=== PATIENT | female | born 1990 | race African-American/Black ===

== ENCOUNTER 2018-05-22 02:18 | Inpatient (IN) ==
[2018-05-22 02:36] LABS: URINE SOURCE VOIDED
[2018-05-22 02:39] LABS: BILIRUBIN URINE NEGATIVE (NEGATIVE); BLOOD URINE TRACE (NEGATIVE); CLARITY CLEAR (CLEAR); COLOR YELLOW; GLUCOSE URINE NEGATIVE (NEGATIVE); KETONE URINE TRACE mg/dL (NEGATIVE); LEUKOCYTES URINE 1+ (NEGATIVE); NITRITE URINE NEGATIVE (NEGATIVE); PH URINE 6.5; PROTEIN URINE 1+(30 mg/dL) mg/dL (NEGATIVE); UROBILINOGEN URINE 4 mg/dL
--- NOTE | 2018-05-22 04:37 | HISTORY AND PHYSICAL ---
CHIEF COMPLAINT: Contractions since midnight. HISTORY OF PRESENT ILLNESS: A 27-year-old, 5, para 3, who presents complaining of contractions intermittently since midnight. Her antepartum course has been uncomplicated. She has had 2 prior vaginal deliveries and 1 prior section. She would like to have a ; however, states that Dr. Harding tells her that he is planning on doing a section. She had a previous section under emergent conditions in [place]. She says that she was told that she was cut low. She would like to have a tubal ligation . PAST OB HISTORY: Spontaneous vaginal delivery x2, section x1, SAB x2. PAST MEDICAL HISTORY: She has a history of Chlamydia treated this . She has a history of ASCUS Pap with a positive HPV. It is not clear from the record whether or not she has had colposcopy. PAST SURGICAL HISTORY: Negative. CURRENT MEDICATIONS: vitamins. ALLERGIES: None. PHYSICAL EXAMINATION: VITAL SIGNS: Blood pressure 134/84. Urine protein is 1+. Urine white cells are 1+. GENERAL APPEARANCE: Well nourished, well developed, alert and oriented x3, comfortable, no distress. ABDOMEN: heart rate category 1. Contractions seen, mild and irregular. Soft, nontender. PELVIS: Cervix is far posterior, 1 cm/long/-2, cephalic. EXTREMITIES: No cyanosis, clubbing, or edema. ASSESSMENT: 1. At 37-38 weeks gestation with previous section-desiring vaginal after section. 2. Desire for permanent sterilization. 3. Does not appear to be in active labor at this point. PLAN: We will observe her in labor and delivery for a couple of more hours to determine whether or not she is possibly in labor. We briefly discussed that a would be safe with a history of a low transverse incision, not with a previous vertical incision, and that we would need to review her operative note before allowing . We will see if we can obtain that note from [place]. If she is not in labor, she will be allowed to be discharged home and follow up with Dr. Harding as scheduled. cc: Juan Carlos Rosado MD
[2018-05-22] MEDS ORDERED: LR 1,000 ML IV SCH ×2 (04:45→05:00)
[2018-05-22] MEDS ORDERED: LR 500 ML IV ONE (04:55)
[2018-05-22] MEDS ORDERED: BICITRA PO ONE (05:14)
[2018-05-22] MEDS ORDERED: PEPCID IV ONE (05:14)
[2018-05-22] MEDS ORDERED: SODIUM CHLORIDE 0.9% INJ ONE (05:14)
[2018-05-22] MEDS ORDERED: REGLAN IV ONE (05:29)
[2018-05-22 05:31] LABS: BASO# 0.01 X1000 (0.0-0.2); BASO% 0.1 % (0.0-0.8); EOS# 0.07 X1000 (0.0-0.7); EOS% 0.9 % (0.0-10.0); HEMATOCRIT 37.5 % (37.0-47.0); HEMOGLOBIN 12.7 g/dL (12.0-16.0); IMM GRAN# 0.01 X1000 (0.0-0.04); IMM GRAN% 0.1 % (0.0-0.5); LYMPH# 2.08 X1000 (1.2-3.4); LYMPH% 26.6 % (20.5-51.1); MCH 30.8 PG (27-31); MCHC 33.9 g/dL (33-37); MCV 90.8 FL (81-99); MONO# 0.95 X1000 (0.11-0.59); MONO% 12.2 % (1.7-9.3); MPV 12.9 FL (7.4-10.4); NEUT# 4.69 X1000 (1.4-6.5); NEUT% 60.1 % (42.2-75.2); PLT 198 X1000 (130-400); RBC 4.13 XMIL (4.2-5.4); RDW 13.4 % (11.5-14.5); WBC 7.81 X1000 (4.8-10.8)
[2018-05-22] MEDS: KEFZOL 1 GM/D5W 1 GM/50 ML IVPB IV PRN ×2 (05:31→05:38)
[2018-05-22] MEDS ORDERED: DURAMORPH ONE (05:41)
[2018-05-22] MEDS ORDERED: NEO-SYNEPHRINE ONE (05:41)
[2018-05-22] MEDS ORDERED: PITOCIN ONE (05:41)
[2018-05-22] MEDS ORDERED: VERSED ONE (05:41)
[2018-05-22] MEDS ORDERED: TORADOL ONE (05:41)
[2018-05-22] MEDS ORDERED: SODIUM CHLORIDE 0.9% 10 ML ONE (05:41)
[2018-05-22] MEDS ORDERED: ZOFRAN ONE (05:43)
[2018-05-22 05:44] LABS: CREATININE 0.4 mg/dL (0.5-0.9)
[2018-05-22 06:05] LABS: UR AMPHETAMINES QUAL NONE DETECTED (NONE DETECT); UR BARBITUATES QUAL NONE DETECTED (NONE DETECT); UR BENZODIAZEPIN QUAL NONE DETECTED (NONE DETECT); UR CANNABINOIDS QUAL NONE DETECTED (NONE DETECT); UR COCAINE QUAL NONE DETECTED (NONE DETECT); UR METHADONE QUAL NONE DETECTED (NONE DETECT); UR METHAMPHETAMINE QUAL NONE DETECTED (NONE DETECT); UR OPIATES QUAL NONE DETECTED (NONE DETECT); UR OXYCODONE QUAL NONE DETECTED (NONE DETECT); UR PCP QUAL NONE DETECTED (NONE DETECT); UR PROPOXYPHENE QUAL NONE DETECTED (NONE DETECT); UR TCA QUAL NONE DETECTED (NONE DETECT)
--- NOTE | 2018-05-22 06:10 | PROGRESS NOTE ---
DATE: 05/22/2018 The patient has had some variable decelerations with contractions, has continued to have contractions and seemingly to increase in intensity. She has also had periods of decreased variability in the heart rate strip. Additionally, she has had several blood pressures in the 140s/90s range as well as 1+ proteinuria. ASSESSMENT: 1. A 37-38 week gestation with prior section. 2. Desire for permanent sterilization. 3. Variable decelerations with nonreassuring heart rate. 4. Probably developing mild preeclampsia at this point. PLAN: Recommend we proceed with primary low transverse section and tubal ligation at this time. She is certain that she wants to have permanent and irreversible sterilization, and is agreeable to the plan as outlined. cc: Juan Carlos Rosado MD
[2018-05-22] MEDS ORDERED: MYLICON PO PRN (07:00)
--- NOTE | 2018-05-22 08:13 | OPERATIVE NOTE ---
PROCEDURE DATE: 05/22/2018 PREOPERATIVE DIAGNOSES: 1. At 37 weeks gestation. 2. Prior section. 3. Desire for permanent sterilization. 4. Non-reassuring heart rate pattern. POSTOPERATIVE DIAGNOSES: 1. At 37 weeks gestation. 2. Prior section. 3. Desire for permanent sterilization. 4. Non-reassuring heart rate pattern. PROCEDURE PERFORMED: Repeat low transverse section, plus bilateral tubal ligation. SURGEON: Juan Carlos Rosado M.D. MANAGER BUSINESS: Mazin Gan M.D. ANESTHESIA: Spinal per Dr. Ashby. FINDINGS: Male infant in cephalic presentation with Apgars of 9 and 10. weight 5 pounds 13 ounces. Normal clear amniotic fluid. Normal tubes and ovaries bilaterally. ESTIMATED BLOOD LOSS: 500 mL. SPECIMENS REMOVED: Placenta, plus tubal segment x2. DESCRIPTION OF PROCEDURE: The patient was taken to the operating room, where she underwent spinal analgesia with adequate anesthesia. She was prepped and draped in the supine position. A surgical pause was observed. A Pfannenstiel incision was made in the preexisting scar and carried to the fascia. The fascia was entered sharply and extended laterally sharply. The fascia was dissected from the underlying muscles. The muscles were in the midline. The peritoneum was sharply entered. The bladder blade was inserted. There were a couple of omental adhesions that were lysed using electrocautery to the anterior abdominal wall. A transverse incision was made in the lower uterine segment, and extended laterally bluntly. The infant was delivered from cephalic presentation without difficulty. The nose and mouth were bulb suctioned on the operative field prior to delivery of the body. The cord was clamped and cut. The was passed off for further care. Cord blood was obtained. The placenta was manually extracted. The uterus was exteriorized and closed with a single layer using #1 chromic running interlocking. A fallopian tube was elevated with a Jessy clamp, and an avascular segment of mesosalpinx was penetrated with a hemostatic. Two suture ligatures of 0 chromic were passed through the window created, and the tube was ligated proximally and distally. The intervening segment was resected. An identical procedure was carried out on the contralateral side. The tubal segments and uterine incision were inspected and noted to be hemostatic. The uterus was replaced in the abdominal cavity. The gutters were irrigated with warm saline. The fascia was closed with 0 PDS running. Subcutaneous tissues were closed with 3-0 Vicryl running. Skin was closed with 3-0 Vicryl subcuticular, followed by a layer of Dermabond. All counts were correct. The patient was taken to PACU in satisfactory condition. cc: Juan Carlos Rosado MD
[2018-05-22] MEDS ORDERED: PITOCIN 20 UNITS/NS 20 UNITS/1,000 ML IV.SOLN IV ONE (10:30)
[2018-05-22] MEDS ORDERED: ATARAX PO PRN (10:51)
[2018-05-22] MEDS ORDERED: M-M-R II VACCINE SUBQ ONE (10:51)
[2018-05-22] MEDS ORDERED: DEMEROL PO PRN ×2 (10:51)
[2018-05-22] MEDS ORDERED: PERCOCET-5 PO PRN (10:51)
[2018-05-22] MEDS ORDERED: AMBIEN PO PRN (10:51)
[2018-05-22] MEDS ORDERED: HYDROXYZINE IM PRN (10:51)
[2018-05-22] MEDS ORDERED: PITOCIN IM PRN (10:51)
[2018-05-22] MEDS ORDERED: DEMEROL IM PRN (10:51)
[2018-05-22] MEDS ORDERED: PHENERGAN IM PRN (10:51)
[2018-05-22] MEDS ORDERED: DULCOLAX PR PRN (10:51)
[2018-05-22] MEDS ORDERED: BOOSTRIX VACCINE IM ONE (10:51)
[2018-05-22] MEDS ORDERED: PITOCIN 10 UNITS/LR 10 UNIT/1,000 ML IV.SOLN IV SCH (11:00)
[2018-05-22] MEDS ORDERED: PITOCIN 10 UNITS/NS 1,000 ML IV SCH (11:15)
[2018-05-22] MEDS: MYLICON PO SCH ×3 (13:04→23:17)
[2018-05-22] MEDS: TORADOL IV SCH ×2 (13:04→19:49)
[2018-05-22] MEDS ORDERED: ZOFRAN ODT PO PRN (15:29)
[2018-05-22] MEDS ORDERED: ZOFRAN IV PRN ×2 (15:29)
[2018-05-22] MEDS ORDERED: NARCAN INJ PRN (15:29)
[2018-05-22] MEDS: BENADRYL IV PRN ×2 (15:36→23:18)
[2018-05-22] MEDS: PERICOLACE PO SCH (23:17)
[2018-05-23] MEDS: TORADOL IV SCH (02:14)
--- NOTE | 2018-05-23 06:30 | PROGRESS NOTE ---
DATE: 05/23/2018 SUBJECTIVE: No complaints. OBJECTIVE: Vital Signs: She has been normotensive since delivery. Afebrile. General Appearance: Well nourished, well developed. Abdomen: Fundus is soft and nontender. The incision is clean and dry with some Steri-Strips across it. Nursing called me last night that she had a little bit of separation on the right side of the incision and Steri-Strips were applied. ASSESSMENT: Stable postoperative day #1. PLAN: Check postoperative hemoglobin. Routine care. cc: Juan Carlos Rosado MD
[2018-05-23] MEDS ORDERED: LR 1,000 ML IV SCH (07:00)
[2018-05-23 07:05] LABS: BASO# 0.02 X1000 (0.0-0.2); BASO% 0.3 % (0.0-0.8); EOS# 0.09 X1000 (0.0-0.7); EOS% 1.2 % (0.0-10.0); HEMATOCRIT 31.5 % (37.0-47.0); LYMPH# 1.71 X1000 (1.2-3.4); LYMPH% 23.5 % (20.5-51.1); MCH 29.7 PG (27-31); MCHC 31.7 g/dL (33-37); MCV 93.5 FL (81-99); MONO# 0.77 X1000 (0.11-0.59); MONO% 10.6 % (1.7-9.3); MPV 12.2 FL (7.4-10.4); NEUT# 4.68 X1000 (1.4-6.5); NEUT% 64.4 % (42.2-75.2); PLT 163 X1000 (130-400); RBC 3.37 XMIL (4.2-5.4); RDW 13.1 % (11.5-14.5); WBC 7.27 X1000 (4.8-10.8)
[2018-05-23] MEDS: MYLICON PO SCH ×3 (08:51→20:44)
[2018-05-23] MEDS: BENADRYL IV PRN (08:51)
[2018-05-23] MEDS: PERCOCET-10 PO PRN ×2 (08:52→17:05)
[2018-05-23] MEDS: MOTRIN PO PRN (17:05)
[2018-05-23] MEDS: PERICOLACE PO SCH (20:44)
[2018-05-24] MEDS: PERCOCET-10 PO PRN ×5 (00:18→23:11)
[2018-05-24] MEDS: MOTRIN PO PRN ×3 (03:28→19:54)
[2018-05-24] MEDS ORDERED: XYLOCAINE-MPF 1% INJ ONE (07:02)
--- NOTE | 2018-05-24 08:19 | PROGRESS NOTE ---
DATE: 05/24/2018 SUBJECTIVE: No voiced complaints but does not feel ready for discharge today. She is passing flatus, has not yet had a bowel movement. OBJECTIVE: Vital Signs: Stable, afebrile. General Appearance: Well nourished, well developed, not uncomfortable. Abdomen: Fundus nontender. Incision clean. ASSESSMENT: Stable postoperatively. PLAN: Planned discharge tomorrow. cc: Juan Carlos Rosado MD
[2018-05-24] MEDS: MYLICON PO SCH ×7 (09:08→21:08)
[2018-05-24] MEDS: PERICOLACE PO SCH (21:08)
[2018-05-25] MEDS: MOTRIN PO PRN (04:28)
[2018-05-25] MEDS: PERCOCET-10 PO PRN (04:28)
[2018-05-25 07:21] VITALS: BP 132/68
[2018-05-25] MEDS ORDERED: FLU VACCINE IM ONE (07:27)
--- NOTE | 2018-05-25 08:08 | DISCHARGE SUMMARY ---
ADMISSION DATE: 05/22/2018 DISCHARGE DATE: 05/25/2018 DISCHARGE DIAGNOSES: 1. A 37-week gestation. 2. Prior section. 3. Desire for permanent sterilization. 4. Non-reassuring heart rate pattern. 5. Hypertension. SUMMARY: A 27-year-old, 5, para 3, presented at 37 weeks' gestation complaining of some contractions. She was not in active labor, but she was having some intermittent contractions. She was noted to be hypertensive with blood pressures of 140s/90s with 1+ protein. In addition, she had several variable decelerations during her period of monitoring. She was taken for repeat section with bilateral tubal ligation on 05/22/2016, and delivered a vigorous male infant, weight 5 pounds 13 ounces, with Apgars of 9 and 10. Her course was uneventful. On the day of discharge, the abdomen was noted to be soft and nontender. The incision was clean and dry with Steri-Strips intact. ASSESSMENT: She is now discharged home in good condition on the morning of postoperative day #3. DIET: Regular. ACTIVITY: Pelvic rest. MEDICATIONS: 1. Pana 5/325 one p.o. 4 times daily p.r.n., #24. 2. Motrin 600 mg p.o. t.i.d., #24. FOLLOWUP: Followup will be with Dr. Harding in 1 week. cc: Juan Carlos Rosado MD
[2018-05-25] MEDS: MYLICON PO SCH (09:16)
== END 2018-05-25 10:20 | disposition home or self-care (01) | DRG 785 ==
LOC: P.OPLD 02:18 → P.LD 02:20
PROVIDERS: ADMIT Obstetrics & Gynecology; ATTEND Obstetrics & Gynecology
CPT/HCPCS: 59025; 80104; 80301; 80305; 81003; 82565; 84450; 85025; 86592; 90686; 90707; A9270; G0431; G0434; G0477; J0690; J1200; J1885; J2250; J2274; J2275; J2370; J2405; J2590; J2765; J7120; Q9974